=== PATIENT | female | born 1990 | race Two or more races ===

== ENCOUNTER 2018-08-24 12:44 | Inpatient (IN) | payer OTHER ==
[~2018-08-24] VITALS: Ht 167.6 cm; Wt 3.2 kg
[2018-08-24] MEDS ORDERED: PRENATAL 19 TA1 EAC1 PO (14:06)
== END 2018-08-29 14:14 | DRG 785 ==
LOC: O/R 08-27 05:45 → SURH 08-27 08:45 → OB/GYN 08-27 09:40 → SURH 08-27 12:27 → OB/GYN 08-29 14:14
PROVIDERS: ADMIT Specialist
PROC: 0UL70ZZ Occlusion of Bilateral Fallopian Tubes, Open Approach (ICD-10-PCS; 2018-08-27)
PROC: 4A0HXFZ Measurement of Products of Conception, Cardiac Rhythm, External Approach (ICD-10-PCS; 2018-08-27)
PROC: 10D00Z1 Extraction of Products of Conception, Low, Open Approach (ICD-10-PCS; principal; 2018-08-27 08:45)
DX: O82 Encounter for cesarean delivery without indication (principal); O24.414 Gestational diabetes mellitus in pregnancy, insulin controlled; Z3A.38 38 weeks gestation of pregnancy; Z37.0 Single live birth; Z30.2 Encounter for sterilization